=== PATIENT | female | born 1980 | race Caucasian/White ===

== ENCOUNTER 2022-07-13 19:39 | Inpatient (IN) | payer BC ==
[~2022-07-13] VITALS: Ht 162.6 cm; Wt 90.7 kg
[2022-07-13] MEDS ORDERED: ONDANSETRON HCL INJ 2MG/ML 2ML 2 MG/ML VIAL IV STA (19:50)
[2022-07-13] MEDS ORDERED: HYDROMORPHONE 1MG/1ML INJ IV STA (19:50)
[2022-07-13] MEDS ORDERED: ONDANSETRON HCL INJ 2MG/ML 2ML 2 MG/ML VIAL ONE (19:57)
[2022-07-13] MEDS ORDERED: HYDROMORPHONE 2MG/ML 2 MG/ML ML ONE (19:57)
[2022-07-13 19:59] LABS: BASOPHILS % 0.3 % (0.0-1.0); EOSINOPHILS # (AUTO) 0.1 (0.0-0.4); EOSINOPHILS % 1.2 % (0.0-6.0); HEMATOCRIT 36.6 % (34.2-44.1); HEMOGLOBIN 11.8 g/dL (12.0-16.0); LYMPHOCYTES # (AUTO) 1.8 (1.0-3.2); LYMPHOCYTES % 17.2 % (18.0-39.1); MEAN CORPUSCULAR HEMOGLOBIN 27.8 pg (28-32); MEAN CORPUSCULAR HGB CONC 32.2 g/dL (31-35); MEAN CORPUSCULAR VOLUME 86.3 fL (81-99); MONOCYTES # (AUTO) 0.7 (0.2-0.8); NEUTROPHILS # (AUTO) 7.8 (2.1-6.9); PLATELET COUNT 370 x10e3/uL (140-360); RED BLOOD COUNT 4.24 x10e6/uL (3.6-5.1); RED CELL DISTRIBUTION WIDTH 14.1 % (11.7-14.4)
[2022-07-13 20:14] LABS: INR 0.9; PROTHROMBIN TIME 12.7 seconds (11.9-14.5)
[2022-07-13 20:15] LABS: PARTIAL THROMBOPLASTIN TIME 27.9 seconds (23.8-35.5)
[2022-07-13 20:24] LABS: ALBUMIN 3.2 g/dL (3.5-5.0); ALBUMIN/GLOBULIN RATIO 0.8 (0.8-2.0); ANION GAP 14.8 mmol/L (8-16); CALCIUM 9.2 mg/dL (8.4-10.2); CREATININE, SERUM 0.96 mg/dL (0.57-1.11); POTASSIUM 3.8 mmol/L (3.5-5.1)
[2022-07-13] MEDS ORDERED: IOPAMIDOL 370 MG/ML 100 ML INFUS..BTL INJ ONE (20:49)
[2022-07-13] MEDS ORDERED: HEPARIN SOD (PORCINE) 5,000 UNIT/ML VIAL IV ONE (22:15)
[2022-07-13] MEDS ORDERED: HEPARIN SOD (PORCINE) 5,000 UNIT/ML VIAL ONE (22:43)
[2022-07-13] MEDS ORDERED: HEPARIN 25,000 UNIT DRIP IV ONE ×2 (22:47→22:48)
[2022-07-13] MEDS: HEPARIN 25,000 UNIT/D5W 250ML 1,200 UNIT in DEXTROSE 5% 250ML 250 ML IV SCH (22:57)
[2022-07-13] MEDS ORDERED: SODIUM CHLORIDE FLUSH 10 ML SYR INJ PRN (23:15)
[2022-07-14] VITALS (9 sets, daily range): BP systolic 113–148; BP diastolic 72–84
[2022-07-14] MEDS: HYDROMORPHONE 1MG/1ML INJ IV PRN ×4 (01:11→19:34)
[2022-07-14] MEDS ORDERED: SPIRONOLACTONE50 MG PO (03:45)
[2022-07-14] MEDS ORDERED: GABAPENTIN300 MG PO (03:45)
[2022-07-14] MEDS ORDERED: CEPHALEXIN500 MG PO (03:45)
[2022-07-14] MEDS ORDERED: HYDROCODON-ACE1 EA11 PO (03:45)
[2022-07-14] MEDS ORDERED: OMEPRAZOLE40 MG PO (03:45)
[2022-07-14] MEDS ORDERED: METFORMIN HCL500 MG PO (03:45)
[2022-07-14 06:52] LABS: BASOPHILS % 0.3 % (0.0-1.0); EOSINOPHILS # (AUTO) 0.1 (0.0-0.4); EOSINOPHILS % 1.2 % (0.0-6.0); HEMATOCRIT 33.6 % (34.2-44.1); HEMOGLOBIN 10.8 g/dL (12.0-16.0); LYMPHOCYTES # (AUTO) 1.9 (1.0-3.2); LYMPHOCYTES % 18.8 % (18.0-39.1); MEAN CORPUSCULAR HEMOGLOBIN 27.8 pg (28-32); MEAN CORPUSCULAR HGB CONC 32.1 g/dL (31-35); MEAN CORPUSCULAR VOLUME 86.6 fL (81-99); MONOCYTES # (AUTO) 0.7 (0.2-0.8); MONOCYTES % 7.4 % (4.4-11.3); NEUTROPHILS # (AUTO) 7.1 (2.1-6.9); NEUTROPHILS % 71.9 % (38.7-80.0); PLATELET COUNT 315 x10e3/uL (140-360); RED BLOOD COUNT 3.88 x10e6/uL (3.6-5.1)
[2022-07-14 07:19] LABS: CREATINE KINASE 42 IU/L (29-168)
[2022-07-14 07:21] LABS: ALBUMIN 2.9 g/dL (3.5-5.0); ALBUMIN/GLOBULIN RATIO 0.8 (0.8-2.0); ANION GAP 14.3 mmol/L (8-16); CREATININE, SERUM 0.84 mg/dL (0.57-1.11); POTASSIUM 4.3 mmol/L (3.5-5.1)
[2022-07-14] MEDS: ONDANSETRON HCL INJ 2MG/ML 2ML 2 MG/ML VIAL IV PRN ×2 (12:17→19:34)
[2022-07-14 13:16] LABS: CREATINE KINASE 37 IU/L (29-168)
[2022-07-14] MEDS: HEPARIN 25,000 UNIT/D5W 250ML 1,200 UNIT in DEXTROSE 5% 250ML 250 ML IV SCH (18:25)
[2022-07-15] VITALS (9 sets, daily range): BP systolic 110–185; BP diastolic 72–98
[2022-07-15] MEDS: HYDROMORPHONE 1MG/1ML INJ IV PRN ×4 (03:54→21:16)
[2022-07-15 06:51] LABS: CREATINE KINASE 27 IU/L (29-168)
[2022-07-15] MEDS: ONDANSETRON HCL INJ 2MG/ML 2ML 2 MG/ML VIAL IV PRN ×2 (08:54→21:16)
[2022-07-15] MEDS: APIXABAN 5 MG TABLET PO SCH ×2 (10:53→20:42)
[2022-07-16] VITALS (7 sets, daily range): BP systolic 108–131; BP diastolic 70–79
[2022-07-16] MEDS: ONDANSETRON HCL INJ 2MG/ML 2ML 2 MG/ML VIAL IV PRN ×2 (03:49→20:22)
[2022-07-16] MEDS: HYDROMORPHONE 1MG/1ML INJ IV PRN ×4 (03:49→20:19)
[2022-07-16 05:54] LABS: BASOPHILS % 0.4 % (0.0-1.0); EOSINOPHILS # (AUTO) 0.1 (0.0-0.4); EOSINOPHILS % 1.3 % (0.0-6.0); HEMATOCRIT 34.5 % (34.2-44.1); HEMOGLOBIN 10.8 g/dL (12.0-16.0); LYMPHOCYTES # (AUTO) 1.7 (1.0-3.2); LYMPHOCYTES % 18.5 % (18.0-39.1); MEAN CORPUSCULAR HEMOGLOBIN 27.7 pg (28-32); MEAN CORPUSCULAR HGB CONC 31.3 g/dL (31-35); MEAN CORPUSCULAR VOLUME 88.5 fL (81-99); MONOCYTES # (AUTO) 0.8 (0.2-0.8); NEUTROPHILS # (AUTO) 6.3 (2.1-6.9); NEUTROPHILS % 70.4 % (38.7-80.0); PLATELET COUNT 362 x10e3/uL (140-360); RED CELL DISTRIBUTION WIDTH 13.3 % (11.7-14.4)
[2022-07-16 06:30] LABS: ANION GAP 13.2 mmol/L (8-16); CREATININE, SERUM 0.93 mg/dL (0.57-1.11); POTASSIUM 4.2 mmol/L (3.5-5.1)
[2022-07-16 06:40] LABS: INR 1.25; PROTHROMBIN TIME 16.2 seconds (11.9-14.5)
[2022-07-16 06:41] LABS: PARTIAL THROMBOPLASTIN TIME 41.1 seconds (23.8-35.5)
[2022-07-16] MEDS ORDERED: PANTOPRAZOLE SOD 40 MG TABEC PO SCH (09:00)
[2022-07-16] MEDS: APIXABAN 5 MG TABLET PO SCH ×2 (09:21→20:19)
[2022-07-16] MEDS: METFORMIN HCL 500 MG TAB PO SCH ×2 (09:22→16:22)
[2022-07-16] MEDS ORDERED: KETOROLAC TROMETHAMINE 30 MG/ML VIAL IV ONE (11:00)
[2022-07-16] MEDS: DOCUSATE SODIUM 100 MG CAP PO SCH ×2 (14:39→20:18)
[2022-07-16] MEDS: POLYETHYLENE GLYCOL 3350 17 GM PACK PO SCH (16:21)
[2022-07-17 00:13] VITALS: BP 115/75
[2022-07-17 04:55] VITALS: BP 107/70
[2022-07-17] MEDS: HYDROMORPHONE 1MG/1ML INJ IV PRN ×2 (05:47→09:27)
[2022-07-17] MEDS ORDERED: PANTOPRAZOLE SOD 40 MG TABEC PO SCH (07:30)
[2022-07-17 08:16] VITALS: BP 125/73
[2022-07-17] MEDS: METFORMIN HCL 500 MG TAB PO SCH (08:35)
[2022-07-17] MEDS: POLYETHYLENE GLYCOL 3350 17 GM PACK PO SCH (08:35)
[2022-07-17] MEDS: APIXABAN 5 MG TABLET PO SCH (08:35)
[2022-07-17] MEDS: DOCUSATE SODIUM 100 MG CAP PO SCH (08:35)
[2022-07-17 08:44] VITALS: BP 125/73
[2022-07-17] MEDS: ONDANSETRON HCL INJ 2MG/ML 2ML 2 MG/ML VIAL IV PRN (09:27)
[2022-07-17] MEDS ORDERED: Docusate Sodium PO (09:37)
[2022-07-17] MEDS ORDERED: MIRALAX17 GM PO (09:37)
[2022-07-17] MEDS ORDERED: ELIQUIS5 MG PO ×2 (09:37→12:12)
[2022-07-17 11:49] VITALS: BP 110/69
[2022-07-17] MEDS ORDERED: ONDANSETRON HCL 4 MG ORAL DISINTEGRATING TAB PO PRN (12:15)
== END 2022-07-17 13:10 | disposition home or self-care (01) | DRG 176 ==
LOC: ER 19:42 → ERHOLD 23:03 → MED/SURG2 07-14 01:06
PROVIDERS: ADMIT Internal Medicine; ATTEND Internal Medicine
DX: I26.99 Other pulmonary embolism without acute cor pulmonale (principal); K21.9 Gastro-esophageal reflux disease without esophagitis
CPT/HCPCS: 36415; 71260; 80048; 80053; 82550; 82553; 84484; 84702; 85025; 85610; 85730; 93005; 93306; 93970; 94760; 94799; 99284; J0696; J1170; J1644; J1885; J2405; Q9967

== ENCOUNTER 2024-06-16 15:18 | Emergency (ER) | payer BC ==
[~2024-06-16] VITALS: Ht 160 cm; Wt 95.3 kg
[~2024-06-16 15:18] MED LIST: CEPHALEXIN500 MG PO; Docusate Sodium PO; ELIQUIS5 MG PO; GABAPENTIN300 MG PO; HYDROCODON-ACE1 EA11 PO; IBUPROFEN800 MG PO; METFORMIN HCL500 MG PO; MIRALAX17 GM PO; OMEPRAZOLE40 MG PO; SPIRONOLACTONE50 MG PO
[2024-06-16 15:45] VITALS: PULSE 84; RESP 20; TEMP 98.1
[2024-06-16] MEDS: TETANUS/DIPHTHERIA TOX ADULT 0.5 ML SYR IM ONE (17:06)
[2024-06-16 17:20] VITALS: BP 124/78; PULSE 68; RESP 18; TEMP 98.1; O2SAT 98
== END 2024-06-16 17:22 | disposition home or self-care (01) ==
LOC: ER 15:55
DX: S61.012A Laceration without foreign body of left thumb without damage to nail, initial encounter (principal); W26.8XXA Contact with other sharp object(s), not elsewhere classified, initial encounter; Y92.89 Other specified places as the place of occurrence of the external cause; K21.9 Gastro-esophageal reflux disease without esophagitis; E28.2 Polycystic ovarian syndrome; Z87.19 Personal history of other diseases of the digestive system
CPT/HCPCS: 90714; 99284

== ENCOUNTER 2024-11-23 04:19 | Emergency (ER) | payer BC ==
[~2024-11-23] VITALS: Ht 162.6 cm; Wt 90.7 kg
[2024-11-23 04:43] LABS: BASOPHILS % 0.4 % (0.0-1.0); EOSINOPHILS % 1.1 % (0.0-6.0); LYMPHOCYTES % 21.5 % (18.0-39.1); MONOCYTES % 6.8 % (4.4-11.3); NEUTROPHILS % 69.8 % (38.7-80.0); RED CELL DISTRIBUTION WIDTH 13.2 % (11.7-14.4)
[2024-11-23 05:03] LABS: EST GLOMERULAR FILTRATION RATE 105 ML/MIN (>=60)
[2024-11-23] MEDS: SODIUM CHLORIDE 0.9% 1000ML 1,000 ML IV ONE (05:24)
[2024-11-23] MEDS: ONDANSETRON HCL INJ 2MG/ML 2ML 2 MG/ML VIAL IV STA (05:24)
[2024-11-23] MEDS: KETOROLAC TROMETHAMINE 30 MG/ML VIAL IV STA ×2 (05:24→08:02)
[2024-11-23 05:30] LABS: LEUKOCYTE ESTERASE ,URINE NEGATIVE (NEGATIVE)
[2024-11-23 05:31] LABS: PROTEIN,URINE DIPSTICK NEGATIVE (NEGATIVE); URINE UROBILINOGEN 0.2 mg/dL (0.2 - 1)
[2024-11-23 05:53] LABS: EPITHELIAL CELLS,URINE MODERATE /LPF
[2024-11-23] MEDS ORDERED: IOPAMIDOL 370 MG/ML 100 ML INFUS..BTL INJ ONE (06:21)
[2024-11-23 07:24] VITALS: TEMP 97.6
[2024-11-23] MEDS ORDERED: ULTRAM 50MG50 MG PO (07:41)
[2024-11-23] MEDS ORDERED: FLOMAX0.4 MG PO (07:41)
[2024-11-23] MEDS ORDERED: KETOROLAC TROME10 MG PO (07:41)
[2024-11-23] MEDS ORDERED: ONDANSETRON ODT4 MG PO (07:41)
[2024-11-23 08:02] VITALS: PULSE 64; RESP 16; O2SAT 100
== END 2024-11-23 08:05 | disposition home or self-care (01) ==
LOC: ER 04:36
DX: N13.2 Hydronephrosis with renal and ureteral calculous obstruction (principal); K21.9 Gastro-esophageal reflux disease without esophagitis; E28.2 Polycystic ovarian syndrome
CPT/HCPCS: 36415; 74177; 80053; 81001; 83690; 84702; 85025; 99284; J1885; J2405; J7030; Q9967